=== PATIENT | female | born 1950 | race Asian ===

== ENCOUNTER → 2021-02-19 | Outpatient (CLI) | payer MEDICARE, OTHER ==
[~2021-02-19] MED LIST: AMITRIPTYLINE H25 M1 PO; ASPIRIN E.C. 8181 MG PO; CEPHALEXIN500 M1 PO; CRESTOR5 MG PO; FISH OIL CONC1000 MG PO; GLUCOSAMINE/CHONDROI PO; LORTAB 5/500 501 TAB PO; LOZOL 2.5M2.5 MG/TAB PO; ONE DAILY1 TA1 PO; UROCIT; VITAMIN D1000 IU PO; [UNRECOGNIZED DRUG - OTHER] PO
--- NOTE | 2021-02-25 06:13 | NUR ---
Called by Pinky for emergent report of a bradycardic event. Called Dr. Nevarez to report findings, emergent cardiac event report placed in box. Senior Project Engineer will call ordering physican and notify patient.
== END ==
LOC: COL.CARD 07:00
DX: I49.8 Other specified cardiac arrhythmias (principal)

== ENCOUNTER → 2021-03-12 | Outpatient (CLI) | payer MEDICARE, OTHER | LOC: COL.CARD 12:00 | DX: R55 Syncope and collapse (principal) ==